=== PATIENT | male | born 1990 ===

== ENCOUNTER 2021-09-04 12:43 | Emergency (ER) | payer SELFPAY ==
[~2021-09-04] VITALS: Ht 162.6 cm; Wt 90.9 kg
[2021-09-04 13:00] VITALS: BP 120/67
== END 2021-09-04 13:20 | disposition home or self-care (01) ==
LOC: ER 12:44
DX: R11.10 Vomiting, unspecified (principal); Z59.00 Homelessness unspecified
CPT/HCPCS: 99281